=== PATIENT | male | born 1970 | race Caucasian/White ===

== ENCOUNTER 2022-01-08 11:07 | Emergency (ER) | payer BC, MEDICAID, OTHER ==
[2022-01-08 11:20] VITALS: BP 107/89; PULSE 109
[2022-01-08 11:57] LABS: CHLORIDE,CL 96 mmol/L (98-107); SODIUM,NA 133 mmol/L (136-145)
[2022-01-08 12:01] LABS: ANION GAP 15.1 mmol/L (5-15)
== END 2022-01-08 12:34 | disposition home or self-care (01) ==
LOC: VM.ED 11:07
DX: E11.65 Type 2 diabetes mellitus with hyperglycemia (principal); F32.A Depression, unspecified; F31.9 Bipolar disorder, unspecified; Z79.899 Other long term (current) drug therapy; Z88.8 Allergy status to other drugs, medicaments and biological substances; Z88.1 Allergy status to other antibiotic agents; Z91.030 Bee allergy status
CPT/HCPCS: 36415; 80053; 81001; 85025; 99284